=== PATIENT | female | born 1965 | race American Indian/Alaskan Native ===

== ENCOUNTER 2021-09-25 16:31 | Emergency (ER) | payer SELFPAY ==
[2021-09-25] MEDS ORDERED: ACETAMINOPHEN 500 MG TAB PO ONE (20:24)
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
--- NOTE | 2021-09-25 21:00 | XRay Report ---
CERVICAL SPINE 3 VIEWS INDICATION / CLINICAL INFORMATION: posterior Neck pain. COMPARISON: None available. FINDINGS: VERTEBRAE: No acute fracture. No significant malalignment. DISC SPACES / FACET JOINTS:No significant abnormality. PARASPINAL SOFT TISSUES:No significant abnormality. ADDITIONAL FINDINGS: None. IMPRESSION: 1. No acute findings. Signer Name: Maggie Barney MD Signed: 09/25/2021 8:56 PM Workstation Name: [id number]
--- NOTE | 2021-09-25 21:01 | XRay Report ---
LEFT SHOULDER 3 VIEW(S) INDICATION / CLINICAL INFORMATION: Left shoulder pain and swelling. COMPARISON: None available. FINDINGS: BONES / JOINT(S): No acute fracture or subluxation. No significant arthritis. Biceps tenodesis plate in the proximal humerus. SOFT TISSUES: No significant abnormality. ADDITIONAL FINDINGS: None. IMPRESSION: 1. No acute findings. Signer Name: Maggie Barney MD Signed: 09/25/2021 8:56 PM Workstation Name: [id number]
[2021-09-25 22:18] VITALS: BP 132/70
== END 2021-09-25 22:49 | disposition home or self-care (01) ==
LOC: ED 16:31
DX: S46.912A Strain of unspecified muscle, fascia and tendon at shoulder and upper arm level, left arm, initial encounter (principal); S16.1XXA Strain of muscle, fascia and tendon at neck level, initial encounter; Z91.09 Other allergy status, other than to drugs and biological substances; Z79.899 Other long term (current) drug therapy; X58.XXXA Exposure to other specified factors, initial encounter; Y93.89 Activity, other specified; Y92.89 Other specified places as the place of occurrence of the external cause; Y99.8 Other external cause status
CPT/HCPCS: 72040; 99284